=== PATIENT | female | born 1985 | race Caucasian/White ===

== ENCOUNTER 2017-05-08 18:32 | Emergency (ER) | payer OTHER | END 2017-05-08 19:10 | disposition home or self-care (01) | LOC: CFTX 18:32 → CED 18:32 → CFTX 18:45 | DX: H57.8 Other specified disorders of eye and adnexa (principal); F31.9 Bipolar disorder, unspecified; Z91.040 Latex allergy status | CPT/HCPCS: 84703; 96372; 99283 ==

== ENCOUNTER 2017-06-11 22:56 | Emergency (ER) | payer OTHER | END 2017-06-11 23:45 | disposition left against medical advice (07) | LOC: CED 22:56 | DX: Z53.21 Procedure and treatment not carried out due to patient leaving prior to being seen by health care provider (principal) ==

== ENCOUNTER 2017-06-13 23:38 | Inpatient (IN) | payer OTHER ==
--- NOTE | ~2017-06-13 | HP ---
Unit #: [id number] #: [id number] Patient: MARELY MUSTAFA [id number] [address] [address] [id number] I MR#: [id number] NAME: MARELY MUSTAFA ROOM: [address] Age: 32 Sex: F Admission Date: 06/14/2017 : 1985 Attending Physician: Kathya Rodriguez M.D. Primary Care Physician: No Primary Care Physician HISTORY AND PHYSICAL CHIEF COMPLAINT Community-acquired pneumonia. HISTORY OF PRESENT ILLNESS This pleasant 32-year-old female is admitted for community-acquired pneumonia. The patient states that she was bitten by a tick in the left leg and has had some left leg swelling, began to develop fevers, headache, weakness but also a deep cough productive of brown sputum intermittently, shortness of breath and mild bronchospasm. The patient notes some anterior chest discomfort with inspiration with coughing. Over the past two days, the patient has also noted some blood in her stool. She ultimately presented to this emergency department late last evening where a chest x-ray shows left greater than right predominantly lower lobe infiltrates. Due to a headache, the patient was treated with Motrin, Reglan, Benadryl and Decadron with improvement. She was bolused with a liter of saline and currently is receiving Rocephin and Zithromax. The patient has not been hospitalized for some time. She states that she took antibiotics for a breast I and D for an abscess a couple of months ago. PAST MEDICAL HISTORY 1. History of recurrent pneumonia. 2. Left wrist surgery. 3. I and D of a breast abscess. 4. D and C. SOCIAL HISTORY The patient lives with her wqjwo-bika-cbu son. She smokes between two to three packs per day of tobacco. The patient does not want to stop smoking. The patient does not drink alcohol. The patient states that she uses occasional pain pills. She previously did use IV drugs in the past but nothing recently. FAMILY HISTORY Lung cancer. ALLERGIES No known drug allergies. The patient states, however, that if she does receive vancomycin, she needs Benadryl. HOME MEDICATIONS None. Unit #: [id number] #: [id number] Patient: MARELY MUSTAFA REVIEW OF SYSTEMS Notable for headache, weakness, productive cough, shortness of breath, tick bite left leg, tobacco abuse, pneumonia, above-mentioned surgeries, rectal bleeding. All other systems were reviewed and otherwise negative. PHYSICAL EXAMINATION GENERAL APPEARANCE: A pleasant 32-year-old female who is mildly somnolent after receiving the Benadryl and Reglan. VITAL SIGNS: Temperature 100.1. Pulse 118. Respirations 19. Blood pressure 110/60. O2 saturation 99% on room air. HEENT: Eyes: PERRLA. Extraocular muscles are intact. Pharynx is benign. NECK: Supple without adenopathy or thyromegaly. CHEST: Actually clear. CARDIAC: Normal S1, S2 with a soft systolic murmur best heard at the left sternal border. ABDOMEN: Bowel sounds are present. No hepatosplenomegaly, tenderness or masses. RECTAL: Examination was refused by the patient. EXTREMITIES: Without edema. Pedal pulses are present. There are two tiny puncture watson noted on the back of the left thigh. NEUROLOGIC: The patient is mildly somnolent but easily arousible. Cranial nerves are intact. She has equal strength throughout. DIAGNOSTIC STUDIES LABORATORY: Hematocrit 32.4 down from 40.7 three years ago. WBC count is 14. Normal platelet count. SMA-12: Glucose 125, sodium 133, potassium 3.2, chloride 99, calcium 8.2. Lactic acid is pending. Point of care beta hCG is negative in the ER. IMAGING: Chest x-ray: Left greater than right predominantly lower lobe infiltrates. ASSESSMENT 1. What appears to be a community-acquired pneumonia. 2. Hypokalemia. 3. Recent rectal bleeding but patient declines rectal examination. 4. Normocytic anemia. 5. Soft cardiac murmur. 6. Tobacco abuse. 7. Complaints of left leg swelling following tick bite. However, the patient recently did drive to [place]. PLANS 1. Rocephin and Zithromax will be continued pending cultures. We will order mucolytics and bronchodilators. Nicoderm patch. 2. Venous Dopplers of the legs to rule out DVT. 3. Check urine tox screen, HIV and hepatitis profile. 4. Replace potassium and check magnesium. 5. Anemia workup and obtain hemoccult. 6. The patient is young and ambulatory so we will hold DVT prophylaxis at this time. Dictated by Kathya Rodriguez M.D. AML/bd Unit #: [id number] #: [id number] Patient: MARELY MUSTAFA TD: 06/14/2017 06:37 JOB #: [id number] HISTORY AND PHYSICAL Page 1 of 1 X Kathya Rodriguez MD X HISTORY AND PHYSICAL
--- NOTE | ~2017-06-13 | DS ---
Unit #: [id number] #: [id number] Patient: MARELY MUSTAFA [id number] [address] [address] [id number] I MR#: [id number] NAME: MARELY MUSTAFA ROOM: 226 Age: 32 Sex: F Admission Date: 06/14/2017 : 1985 Discharge Date: 06/15/2017 Attending Physician: Austin Lovett M.D. DISCHARGE SUMMARY PRINCIPAL DIAGNOSES 1. Bibasilar community-acquired pneumonia. 2. Sepsis secondary to bibasilar pneumonia. Sepsis was present on admission. 3. Iron deficiency anemia with discharge hemoglobin of 10.6. 4. Hypokalemia, now resolved. 5. Hematochezia. 6. Tobaccoism. 7. Moderate protein malnutrition. CONSULTANTS None. PROCEDURES 1. Lower extremity venous Doppler bilaterally which was negative for DVT. 2. Chest x-ray on June 14, 2017, with bibasilar infiltrates, right greater than left. CLINICAL HISTORY AND HOSPITAL COURSE Ms. Mustafa is a 32-year-old female who presented to the emergency department with cough, shortness of breath, and leg swelling. Please refer to History and Physical for further details. Chest x-ray revealed bibasilar pneumonia. Patient was also mildly tachycardic and found to have a mild leukocytosis. She was subsequently admitted. Patient was started on empiric azithromycin and Rocephin. She feels much better today, and her cough has resolved. Her fever has also resolved, as has her tachycardia. A causative organism was not obtained. I am going to change her to Omnicef. In regards to patient's leg swelling, she did undergo a venous Doppler which was negative. There is no evidence of rash today, and this can be followed up as an outpatient. Patient was also mildly anemic and it was found to be primarily iron deficiency. I will place her on some iron supplementation on discharge. Patient was also hypokalemic but has received oral supplementation, and potassium is now normal. Patient will be discharged home today with treatment as noted. DISCHARGE CONDITION Stable. Unit #: [id number] #: [id number] Patient: MARELY MUSTAFA DISCHARGE STATUS Discharge to home. DISCHARGE MEDICATIONS 1. Omnicef 300 mg p.o. b.i.d. 2. Ferrous gluconate 324 mg b.i.d. with 1 refill. DISCHARGE INSTRUCTIONS 1. Patient was instructed to follow a heart-healthy diet. 2. She should refrain from any further tobacco use but states she does not intend to quit. 3. She can increase her activity as tolerated. FOLLOWUP Patient should follow up with her primary care physician in two weeks. Dictated by... Sendy Chase M.D. Nilson TD: 06/18/2017 14:07 JOB #: [id number] DISCHARGE SUMMARY Page 1 of 1 X Sendy Chase MD X DISCHARGE SUMMARY
--- NOTE | ~2017-06-13 | CR72 ---
[facility] A Service of [facility] RADIOLOGY TEXT RESULTS PATIENT: MARELY MUSTAFA LOCATION: [facility] 226-01 : [birth year] UNIT #: [id number] AGE: [address]: Austin Lovett MD SEX: F ORDER DR: [id number] [place], [place] [address] [id number] I MR#: [id number] Acc #: [id number] NAME: MARELY MUSTAFA : 1985 SEX: F STUDY DATE/TIME: 06/14/2017 0:26 UNIT: [facility] ROOM: [facility] STUDY DESCRIPTION: CR Chest Single View Portable Attending Physician: Austin Lovett M.D. Ordering Physician: Moisés Lindsey M.D. Primary Care Physician: Primary Care Physician No MEDICAL IMAGING REPORT This report is preliminary unless electronic signature is present EXAM Portable chest INDICATION Fever and cough for 6 days. COMPARISON 10/18/2014 FINDINGS This portable view of the chest shows bilateral faint left denser than right infiltrates primarily in the lower lobes. The heart size is normal. The findings suggest bilateral pneumonia. The bones are normal. Dictated by... Phil Terrazas M.D. THIS IS AN ELECTRONICALLY VERIFIED REPORT Phil Terrazas M.D. at 06/14/2017 1:32 PM Wander TD: 06/14/2017 08:20 JOB #: [id number] MEDICAL IMAGING REPORT Page 1 of 1 COPY
--- NOTE | ~2017-06-13 | US84 ---
[id number] [facility] [address] [place], [place] [address] [id number] MR#: [id number] Acc #: [id number] NAME: MARELY MUSTAFA : 1985 SEX: F STUDY DATE/TIME: 06/14/2017 8:30 UNIT: C2A ROOM: 226 STUDY DESCRIPTION: US LE Veins Complete Justin Stdy Attending Physician: Austin Lovett M.D. Ordering Physician: Kathya Rodriguez M.D. Primary Care Physician: No Primary Care Physician MEDICAL IMAGING REPORT This report is preliminary unless electronic signature is present EXAM Bilateral lower extremity venous duplex 06/14/2017 HISTORY Bilateral lower extremity edema and shortness of breath for 1 day. Evaluate for deep vein thrombosis. TECHNIQUE Venous ultrasound examination of both lower extremities was performed using grayscale, spectral Doppler and color flow Doppler imaging. FINDINGS The examination is negative. There is no evidence of deep venous thrombus from the groin to the lower calf bilaterally. Visualized greater saphenous veins are also patent. IMPRESSION Negative examination. No evidence of lower extremity deep venous thrombosis. Dictated by... Rafael Mirza M.D. THIS IS AN ELECTRONICALLY VERIFIED REPORT Rafael Mirza M.D. at 06/14/2017 5:06 PM AUBRIE/bernard TD: 06/14/2017 12:14 JOB #: [id number] MEDICAL IMAGING REPORT Page 1 of 1 COPY
[2017-06-14 00:30] LABS: BASOPHIL% 0.3 % (0-2.5); EOSINOPHIL# 0.1 X10e3 (0-0.7); EOSINOPHIL% 0.4 % (0.0-7.0); HEMATOCRIT 32.4 % (35.0-45.0); HEMOGLOBIN 10.8 gm/dL (12.0-16.0); LYMPHOCYTE# 1.2 X10e3 (1.0-3.5); LYMPHOCYTE% 8.6 % (17.0-45.0); MEAN CELL VOLUME 89.9 FL (83-96); MEAN CORPUSCULAR HEMOGLOBIN 30.1 PG (28-34); MEAN CORPUSCULAR HGB CONC 33.5 g/dL (30-36); MEAN PLATELET VOLUME 8.4 FL (6.5-11.5); MONOCYTE# 0.6 X10e3 (0-1.0); MONOCYTE% 4.1 % (3.0-12.0); NEUTROPHIL% 86.6 % (40-75); PLATELET COUNT 164 X10e3 (140-420); RED BLOOD COUNT 3.61 X10e (3.90-5.30); RED CELL DISTRIBUTION WIDTH 12.9 % (11.0-15.5); WHITE BLOOD COUNT 13.9 X10e3 (4.0-10.5)
[2017-06-14 00:32] LABS: DIFF IND NO
[2017-06-14 00:53] LABS: CALCIUM SERUM 8.2 mg/dL (8.4-10.2); CREATININE SERUM 0.6 mg/dL (0.6-1.4); GLOM FILT RATE Estimated 121.5 mL/min (>60); POTASSIUM 3.2 mmol/L (3.5-5.1)
[2017-06-14 03:30] LABS: AMPHETAMINE NEG (NEG); BARBITURATES NEG (NEG); BENZODIAZEPINES NEG (NEG); COCAINE NEG (NEG); MARIJUANA NEG (NEG); OPIATES POS (NEG); TRICYCLIC ANTIDEPRESSANTS NEG (NEG); U METHADONE NEG (NEG)
[2017-06-14 04:05] LABS: EOSINOPHIL% 0.1 % (0.0-7.0); HEMATOCRIT 30.5 % (35.0-45.0); HEMOGLOBIN 10.1 gm/dL (12.0-16.0); LYMPHOCYTE# 0.5 X10e3 (1.0-3.5); LYMPHOCYTE% 3.9 % (17.0-45.0); MEAN CELL VOLUME 91.7 FL (83-96); MEAN CORPUSCULAR HEMOGLOBIN 30.4 PG (28-34); MEAN CORPUSCULAR HGB CONC 33.2 g/dL (30-36); MEAN PLATELET VOLUME 8.7 FL (6.5-11.5); MONOCYTE# 0.2 X10e3 (0-1.0); MONOCYTE% 1.9 % (3.0-12.0); NEUTROPHIL# 11.6 X10e3 (1.5-7.1); NEUTROPHIL% 94.1 % (40-75); PLATELET COUNT 138 X10e3 (140-420); RED BLOOD COUNT 3.32 X10e (3.90-5.30); RED CELL DISTRIBUTION WIDTH 13.2 % (11.0-15.5); WHITE BLOOD COUNT 12.4 X10e3 (4.0-10.5)
[2017-06-14 04:09] LABS: DIFF IND NO
[2017-06-14 04:56] LABS: ALBUMIN SERUM 2.7 g/dL (3.5-5.0); BILIRUBIN,TOTAL 0.1 mg/dL (0.2-2.0); CALCIUM SERUM 7.7 mg/dL (8.4-10.2); CREATININE SERUM 0.7 mg/dL (0.6-1.4); GLOM FILT RATE Estimated 115.5 mL/min (>60); MAGNESIUM 1.7 mg/dL (1.6-3.0); POTASSIUM 3.4 mmol/L (3.5-5.1)
[2017-06-14 05:11] LABS: FERRITIN 93 ng/mL (11-307)
[2017-06-14] MEDS ORDERED: NO MEDICATIONS (08:18)
[2017-06-15 05:47] LABS: HEMATOCRIT 32.6 % (35.0-45.0); HEMOGLOBIN 10.6 gm/dL (12.0-16.0); MEAN CELL VOLUME 91.9 FL (83-96); MEAN CORPUSCULAR HGB CONC 32.6 g/dL (30-36); MEAN PLATELET VOLUME 9.1 FL (6.5-11.5); RED BLOOD COUNT 3.55 X10e (3.90-5.30)
[2017-06-15 05:58] LABS: WHITE BLOOD COUNT 22.2 X10e3 (4.0-10.5)
[2017-06-15 06:06] LABS: CALCIUM SERUM 8.7 mg/dL (8.4-10.2); CREATININE SERUM 0.5 mg/dL (0.6-1.4); MAGNESIUM 1.8 mg/dL (1.6-3.0); POTASSIUM 3.7 mmol/L (3.5-5.1)
[2017-06-15] MEDS ORDERED: FERROUS GLUCON324 M1 PO (11:37)
[2017-06-15] MEDS ORDERED: OMNICEF300 MG PO (11:38)
[2017-06-18 23:18] LABS: HA AB IGM (HEPPAN) Nonreactive (()); HB CORE AB IGM (HEPPAN) Nonreactive (Nonreactive); HB S AG (HEPPAN) Nonreactive (Nonreactive); HEP C AB (HEPPAN) Reactive (Nonreactive)
== END 2017-06-15 12:01 | disposition home or self-care (01) | DRG 871 ==
LOC: CED 23:38 → CEDOF 06-14 02:28 → C2A 06-14 07:41
PROVIDERS: Emergency Medicine; Internal Medicine
DX: A41.9 Sepsis, unspecified organism (principal); J18.9 Pneumonia, unspecified organism; E44.0 Moderate protein-calorie malnutrition; D50.9 Iron deficiency anemia, unspecified; K92.1 Melena; F17.200 Nicotine dependence, unspecified, uncomplicated; E87.6 Hypokalemia; Z68.24 Body mass index [BMI] 24.0-24.9, adult; R01.1 Cardiac murmur, unspecified; M79.89 Other specified soft tissue disorders; W57.XXXD Bitten or stung by nonvenomous insect and other nonvenomous arthropods, subsequent encounter; Z87.01 Personal history of pneumonia (recurrent); Z80.1 Family history of malignant neoplasm of trachea, bronchus and lung
CPT/HCPCS: 36415; 71010; 80048; 80053; 80074; 80307; 82607; 82728; 83540; 83550; 83605; 83735; 85025; 85027; 86618; 87040; 87045; 87070; 87177; 87205; 87209; 87427; 87522; 87806; 87899; 93970; 94640; 94760; 96361; 96374; 96375; 99285; J0456; J0696; J1100; J1200; J2765